=== PATIENT | male | born 1940 | race Caucasian/White ===

== ENCOUNTER 2019-05-16 11:31 | Emergency (ER) | payer MEDICARE ==
--- NOTE | 2019-05-16 11:37 | ER Report ---
History and Physical Time Seen By MD: 11:34 HPI/ROS CHIEF COMPLAINT: Possible DVT HISTORY OF PRESENT ILLNESS: This is a 78-year-old male who presents to emergency department for concerns of a DVT. 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 Very minimal pain 1 out of 10, no achiness, no shortness of breath or chest pain. The are traveling through, drove up from [place] yesterday, he did wear his compression stockings yesterday during the drive. He is currently taking Eloquis, he's been on this medication for approximately 2 years. No fevers or chills. No rashes. No headach e. No other complaints. REVIEW OF SYSTEMS: Constitutional: No fever, no chills. Eyes: No discharge. ENT: No sore throat. Cardiovascular: No chest pain, no palpitations. Respiratory: No cough, no shortness of breath. Gastrointestinal: No abdominal pain, no vomiting. Genitourinary: No hematuria. Musculoskeletal: As above. Skin: As above. Neurological: No headache. Allergies: Coded Allergies: No Known Drug Allergies (Unverified , 05/16/19) Past Medical/Surgical History Patient has a past medical and surgical history of hypertension, TURP, DVT. Reviewed Nurses Notes: Yes Constitutional Vital Sign - Last 24 Hours 05/16/19 05/16/19 05/16/19 05/16/19 11:31 11:33 11:37 12:01 Temp 97.9 Pulse ??? 68 Resp 16 B/P (MAP) 146/90 (108) 146/90 Pulse Ox 92 84 O2 Delivery Room Air 05/16/19 05/16/19 05/16/19 12:31 12:55 13:01 Pulse 60 59 B/P (MAP) 122/80 (94) Pulse Ox 83 95 Physical Exam General Appearance: The patient is alert, has no immediate need for airway pr otection and no signs of toxicity. Eyes: Pupils equal and round no pallor or injection. ENT, Mouth: Mucous membranes are moist. Respiratory: There are no retractions, lungs are clear to auscultation. Cardiovascular: Regular rate and rhythm. No murmurs, clicks or rubs. Gastrointestinal: Abdomen is soft and non tender, no masses, bowel sounds normal. Neurological: Alert and oriented 4. Moving all extremities. Following all commands. No focal neuro deficits. Skin: Warm and dry, no rashes. Musculoskeletal: Neck is supple non tender. Extremities are nontender, swelling noted to the anterior surface of the right lower leg, mild fluctuance, no erythema or cellulitis and have full range of motion. DIFFERENTIAL DIAGNOSIS: After history and physical exam differential diagnosis was considered for hematoma, DVT, thrombophlebitis, cellulitis. Medical Decision Making EKG/Imaging Imaging PATIENT NAME: Ariel Adams : 1940 MR: [id number] V: [id number] EXAM DATE: ORDERING PHYSICIAN: SOHA NARAYANAN TECHNOLOGIST: Location: [facility] [place] Patient: Ariel Adams : 1940 Visit/Account:[id number] Date of Sevice: 05/16/2019 Right lower extremity venous Doppler duplex ultrasound scan. HISTORY: Right calf swelling, history of DVT in 2003, on anticoagulation. COMPARISON: None. A color flow Doppler duplex ultrasound examination with spectral analysis was performed on the lower extremity. The common femoral vein, superficial femoral vein, and popliteal vein are normal. These vessels compress and augment normally. The upper portions of the trifurcation veins are unremarkable. Portions of the deep veins of the calf are obscured. No intraluminal filling defects are identified to suggest acute thrombus in the deep venous system. Mild soft tissue swelling is present in the right calf. A venous reflux study was not performed at this time. Note that Doppler ultrasound is somewhat insensitive below the knee. IMPRESSION: Negative for acute deep vein thrombosis. Report Dictated By: Han Ghosh MD at 05/16/2019 1:17 PM Report E-Signed By: Han Ghosh MD at 05/16/2019 1:19 PM WSN:[id number] ED Course/Re-evaluation ED Course The patient was admitted to room. A history and physical obtained. Differential diagnoses were considered. An ultrasound of the right lower extremity was negative for DVT, I did review the results with the patient and his . We discussed a few additional possibilities one of which was a small contusion that he was unaware of. The patient will follow-up with his primary care provider when he returns home, he had no other questions or concerns at this time and discharged. Decision to Disposition Date: May 16, 2019 Decision to Disposition Time: 13:26 Depart Departure Latest Vital Signs Vital Signs Date Time Temp Pulse Resp B/P (MAP) Pulse Ox O2 Delivery O2 Flow Rate FiO2 05/16/19 13:01 59 95 05/16/19 12:55 122/80 (94) 05/16/19 11:37 97.9 16 Room Air Impression: Primary Impression: Localized swelling of right lower leg Condition: Improved Disposition: HOME OR SELF-CARE Patient Instructions: Contusion in Adults (ED) Additional Instructions: There was no evidence of a DVT, likely a small contusion. Continue taking your medications as prescribed. Be sure to wear your compression stockings when traveling. Follow up with your pcp when you return home. Drink plenty of water, Get plenty of rest. Return to the ED for any other concerns or worsening symptoms. SOHA NARAYANAN [employer]FFEE HOST-BC May 16, 2019 11:37
[2019-05-16 12:55] VITALS: BP 122/80
--- NOTE | 2019-05-16 13:26 | RADIOLOGY IMAGING REPORT ---
[place] [facility] [place] NAME: Ariel Adams : 1940 MR: [id number] V: [id number] EXAM DATE: ORDERING PHYSICIAN: SOHA NARAYANAN TECHNOLOGIST: Location: [facility] Patient: Ariel Adams : 1940 Visit/Account:[id number] Date of Sevice: 05/16/2019 Right lower extremity venous Doppler duplex ultrasound scan. HISTORY: Right calf swelling, history of DVT in 2003, on anticoagulation. COMPARISON: None. A color flow Doppler duplex ultrasound examination with spectral analysis was performed on the lower extremity. The common femoral vein, superficial femoral vein, and popliteal vein are normal. These ve ssels compress and augment normally. The upper portions of the trifurcation veins are unremarkable. P ortions of the deep veins of the calf are obscured. No intraluminal filling defects are identified to suggest acute thrombus in the deep venous system. Mild soft tissue swelling is present in the right calf. A venous reflux study was not performed at this time. Note that Doppler ultrasound is somewhat insensitive below the knee. IMPRESSION: Negative for acute deep vein thrombosis. Report Dictated By: Han Ghosh MD at 05/16/2019 1:17 PM Report E-Signed By: Han Ghosh MD at 05/16/2019 1:19 PM WSN:[id number]
== END 2019-05-16 13:32 | disposition home or self-care (01) ==
LOC: ER 11:46
DX: M79.89 Other specified soft tissue disorders (principal)
CPT/HCPCS: 99283